=== PATIENT | female | born 1935 | race Caucasian/White ===

== ENCOUNTER 2024-08-31 00:54 | Inpatient (IN) | payer MEDICARE, OTHER, SELFPAY ==
[2024-08-30 19:52] VITALS: BP 125/72
--- NOTE | 2024-08-30 19:54 | ED.GENMED ---
History of Present Illness
General
Chief Complaint: Change in Mental Status
Source: patient and ambulance crew
Exam Limitations: none
Time Seen by Provider: 08/30/24 19:48
Nursing documentation reviewed up to this point in time: agreed with
History of Present Illness
History of Present Illness:
89-year-old female with apparent past medical history of atrial fibrillation (per EMS) presents to the ER for evaluation of lethargy, confusion. Patient is confused on arrival and limited as a historian. According to EMS report she has a history
of atrial fibrillation and presents from home where she lives with her son for increased lethargy and confusion today. When asked the patient how she is feeling she does not respond but she does answer yes or no questions. When asked if she has
pain in her chest she says no. When asked if she has abdominal pain she says no. When asked if she is short of breath she says no. She was covered in stool on arrival and had a high fever. According to EMS family is on the way to the hospital
unfortunately no contact information available at this time and so initial history is limited.
UPDATE
Upon arrival I was able to speak with patient's heel cutter who lives at home with her. He reports that normally she is awake and alert and coherent, plays the piano and can hold a normal conversation and perform ADLs. Apparently today became very
confused, had an episode of vomiting this morning. They noticed that she was lethargic and not speaking very much which is very unusual. Called EMS to bring her to the hospital. Her only medical history is hypothyroidism for which she takes
Synthroid and hyperlipidemia for which she takes a statin. No reported history of A-fib or any cardiac issues according to heel cutter.
Review of Systems
Review of Systems
Unable to obtain full review of systems at this time due to: other (Confused)
All Other Systems: Not applicable
Phy Exam
Physical Exam
Physical Exam:
General: Awake, alert, oriented to person but not place or time
Head: Normocephalic, atraumatic
Eyes: Conjunctiva normal, pupils equal round reactive to light bilaterally
Throat: Airway intact, somewhat dry mucous membranes
Neck: Trachea midline, supple without meningismus
Lungs: Diminished at the lung bases bilaterally; normal respiratory rate, normal pulse ox on room air
Heart: Tachycardia with regular rhythm, no murmurs, gallops, or rubs
Abd: Soft, non distended, no apparent tenderness
Neuro: No gross deficits but disoriented and inconsistent with command following or answering questions
Skin: no rash or wounds noted
Extremities: Trace edema in the legs, extremities are warm and well-perfused
Scores
Heart Failure Risk
Heart Failure Risk Score: Not Applicable
Heart Score for Chest Pain Patients
STEMI patient?: Not applicable
Withdrawal Assessment of Alcohol
Withdrawal Assessment Completed?: Not applicable
Course
Orders/Labs/Results
Orders:
Orders
08/30/24 19:45
Electrocardiogram (*1) Urgent
Reason for Study: Fatigue / Weakness
08/30/24 19:46
EKG- Treatment ONCE
08/30/24 19:49
CR Chest Portable - 1 View Urgent
Comment:
Reason For Exam: fever
Reason Study Needs to be Portable: Unable to Transport
08/30/24 19:50
Complete Blood Count/With Diff Urgent
Comprehensive Metabolic Panel Urgent
TSH Reflex To Free T4 Urgent
Comment: ADDON
Urinalysis Reflex To Culture Urgent
Date Specimen was Collected: 08/30/24
Time Specimen was Collected: 19:46
Urine Microscopic Reflex Cult Urgent
Urine Culture Urgent
NIKKI Source: U
Specimen Description:
Date Specimen was Collected: 08/30/24
Time Specimen was Collected: 19:46
Acetaminophen [Tylenol/Feverall] 650 mg RECTAL NOW STA
08/30/24 19:51
Lactate Level [Lactic Acid] Urgent
Blood Culture Q30M
NIKKI Source: Blood/Venous
Specimen Description:
Blood Culture Q30M
NIKKI Source: Blood/Venous
Specimen Description:
Influenza A+B Rapid Molecular Urgent
NIKKI Source: Nasal Swab
Specimen Description:
0.9% Sodium Chloride 1000 ml [Nss] 1,000 ml IV BOLUS
08/30/24 20:06
CT Head W/o Iv Contrast Urgent
Comment:
Reason For Exam: confused, speech issues
08/30/24 20:19
Acetaminophen [Tylenol] 1,000 mg PO NOW STA
08/30/24 20:20
Acetaminophen [Tylenol] 650 mg .ROUTE .STK-MED ONE
08/30/24 20:21
Acetaminophen [Tylenol] 650 mg PO NOW STA
08/30/24 20:39
COVID-19 Antigen Urgent
Source: Nasal Swab
08/30/24 20:40
CT Abd/pel Without Iv Or Oral Urgent
Comment:
Reason For Exam: sepsis, UTI--eval for stone/nidus
08/30/24 20:41
CefTRIAXone [Rocephin] 1,000 mg IV NOW STA
08/30/24 22:58
Norovirus by PCR Urgent
NIKKI Source: Feces/Stool
Specimen Description:
Date Specimen was Collected: 08/30/24
Time Specimen was Collected: 22:58
08/30/24 23:32
0.9% Sodium Chloride 1000 ml [Nss] 1,000 ml IV BOLUS
08/30/24 23:33
Apixaban [Eliquis] 5 mg PO ONCE ONE
08/31/24 00:36
Admit/Transfer Patient As Directed
Co-Sign Provider:
Level of Care: Inpatient admission
Assign to:: Telemetry
Physician / Group: Adebamiro/Hospitalist Service
Diagnosis: Acute UTI, Atrial fibrillation with RVR
Reason for Telemetry: Arrhythmia
Date to Stop Telemetry: 09/03/24
Time to Stop Telemetry: 11:00
Reason for Hospitalization: antibiotics IV, IV Cardizem infusion, IVF
Expected length of stay greater than two midnights?: Yes
ELOS- Estimated Length of Stay in days: 3
I certify the patient meets the requirements for IP care: Yes
PRN Pain Medication Management As Directed
May give lesser potent ordered pain med per pt: Yes
preference::
Protocol:: Medication orders for pain may be administered in a
manner that supports deferring to patient preference
when the pt is:
- Requesting an ordered lesser potent pain medication.
Least to most potent pain medications are defined
as: acetaminophen < NSAID < tramadol < opioids
(morphine, oxycodone, hydromorphone).
- Requesting a lesser dose of the same medication IF
ORDERED.
- Requesting a less intrusive route of administration
if both routes are prescribed by the provider (PO <
IV).
08/31/24 00:38
Code Status As Directed
Resuscitation Status: Full Code
08/31/24 00:51
CARDIOLOGY CONSULT Routine
Consulting Provider: Felix Reid
Was physician already notified: No
Reason for consult: new atrial fibrillation
08/31/24 00:52
Consult Notification Routine
Specialty to Notify: Cardiology
08/31/24 01:48
0.9% Sodium Chloride 1000 ml [Nss] 1,000 ml IV 60 mls/hr
Acetaminophen [Tylenol] 650 mg PO Q4HPRN PRN
Bisacodyl [Dulcolax] 10 mg RECTAL [id number] PRN
Diltiazem 125 mg/125 ml Nss [Cardizem] 125 mg in 125 ml IV PER PROTOCOL
Continuous dose without titration in mg/hr:: 2.5
Additional Titration Instructions:: Do not titrate. Rate change by provider order only.
Docusate W/Senna [Senokot-S] 1 tablet PO BIDPRN PRN
Polyethylene Glycol Powder [Miralax] 17 grams PO DAILYPRN PRN
08/31/24 01:48
Activity As Directed
Activity Level: Out of Bed-Early Mobility
Intake/ Output As Directed
Frequency: Per unit guidelines
Pneumatic Compression Sleeves As Directed
Type: Knee high
Vital Signs As Directed
Frequency: Per unit guidelines
Weight As Directed
Frequency: Daily
Pulse Ox/spot Check [RESP] Routine
Quantity: 1
DX Deep Vein Thrombosis Video Routine
08/31/24 06:00
Echo 2D MMode Color/Doppler IN AM
Reason for Study: atrial fibrillation
Cholesterol Lowering
Cholesterol Lowering: Sodium, 2 Gram
Basic Metabolic Panel IN AM
Complete Blood Count/No Diff IN AM
Lipid Profile [Cardiovascular Evaluation] IN AM
Magnesium IN AM
TSH IN AM
Levothyroxine [Synthroid] 100 mcg PO DAILY @ 0600
08/31/24 22:00
CefTRIAXone [Rocephin] 1,000 mg IV Q24H
Rosuvastatin Calcium [Crestor] 10 mg PO HS
09/03/24 11:00
DC Protocol for Telemetry ONCE
Abnormal Lab Results
08/30/24
19:50
Absolute Neuts (auto) 7.7 H 10^3/uL
(1.4-6.5)
Absolute Lymphs (auto) 0.3 L 10^3/uL
(1.2-3.4)
Neutrophils % 91.1 H %
(42.2-75.2)
Lymphocytes % 3.3 L %
(20.5-51.1)
Sodium 134 L mmol/L
(135-145)
Carbon Dioxide 18 L mmol/L
(22-30)
Glucose 161 H mg/dl
(70-99)
Urine Ketones 3+ A
(Negative)
Ur Occult Blood Reflex 4+ A
(Negative)
Urine Nitrite (Reflex) Positive A
(Negative)
Leukocyte Esterase Rfl 1+ A
(Negative)
Urine WBC (Reflex) 11-15 A /HPF
(0-5)
Urine Bacteria (Reflex) Many A
(Negative)
08/30/24 19:50
08/30/24 19:50
Vital Signs
Initial and Last Documented VS:
Initial Vital Signs
Temp
38.7 C H
08/30/24 19:42
Last Documented Vital Signs
Temp Pulse Resp BP Pulse Ox
36.6 C 110 20 114/68 90
08/30/24 23:00 08/31/24 00:00 08/31/24 00:00 08/31/24 00:00 08/30/24 23:15
MDM/Problems Addressed
Differential Diagnosis Includes:
Confusion and fever: Differential diagnosis would include UTI, pneumonia, viral syndrome, other intra-abdominal infection somewhat less likely without tenderness
MDM/Problems Addressed:
89-year-old female presents for evaluation of lethargy and confusion, found to have fever on arrival. She was tachycardic, febrile but normotensive, normal respiratory rate, normal pulse ox. Will place an IV send labs including a CBC and a CMP,
lactate, blood cultures. Check urinalysis. Check chest x-ray. Swab for COVID and flu. Will provide antipyretic, fluids. Monitor closely reassess after the above. Family en route, obtain further history when able.
After obtaining further history from heel cutter will add on thyroid studies and also obtain a CT head with speech issues today and new onset A-fib with RVR although cognitive changes and speech difficulties I suspect are more likely related to
febrile illness.
Labs reviewed: CBC unremarkable, CMP no clinically significant abnormalities. Lactate less than 2. Urinalysis positive for infection with blood, nitrites, bacteria and pyuria; chest x-ray reviewed by me shows no acute disease. Will add CT abdomen
pelvis to evaluate for kidney stone/nidus given sepsis and UTI. Cover with antibiotics. Plan for admission.
CT head negative for any acute pathology. CT abdomen pelvis shows constipation, no kidney stone. Question stercoral colitis. Cover with antibiotics already for UTI. Regarding her new onset A-fib�heart rate has improved with fluids. Will start
on Eliquis for anticoagulation. Will admit for continued treatment. Case discussed with hospitalist.
Acute Exacerbation and/or Progression of Chronic Illness:
Acute atrial fibrillation with rapid ventricular response�heart rate improved with fluid resuscitation, also treated with Eliquis for anticoagulant
*Radiology
Radiology exam reviewed: preliminary read by ED provider and radiology read reviewed
*Pulse Oximetry
Patient hypoxic: no
*EKG
Interpreted by ED Provider?: Yes
Heart Rate: 140
Rate: tachycardiac
Rhythm: a-fib
[place]: normal axis
Interval: normal interval
QRS Pattern: normal QRS
Ischemia: non-specific ST changes
*Critical Care Note
Total Time (30-74mins, 75-104mins- exclusive of procedures): 33
comment:
Critical care statement: A total of 33 minutes of critical care time was provided for this patient. This includes management of unstable vital signs, evaluation of the patient at bedside, frequent reassessment, discussion with
consultants/hospitalist, and review of pertinent medical records. This time was separate from time utilized to perform any aforementioned documented procedures
Data Reviewed
Review of Other/Old Records Reveals: Labs
Source: patient, family and ambulance crew
Patient Management
Discussion with other providers: Hospitalist (Discussed with hospitalist)
Escalation/DeEscalation of care consider admission/obs:
Admission indicated
ED Attending Note
-
Portions of this chart may have been created with voice recognition software.� Occasional wrong word or��sound alike� substitutions may have occurred due to the inherent limitations of voice recognition software.
Discharge Plan
Departure
Patient Disposition: Admit
Date of Disposition: 08/30/24
Time of Disposition: 23:34
Admit to doctor: Stephon
Presentation/result/management discussed w/ accepting MD/DO: Hospitalist
Discharge Problem:
Encephalopathy, Acute UTI, Sepsis, Atrial fibrillation with RVR
Interventions
Interventions:
*Risk Screen - Suicide Last Done: 08/30/24 20:50
*General Assessment Last Done: 08/30/24 20:50
*Neglect/Abuse Screening Last Done: 08/30/24 20:50
*ED COVID-19 Vaccine History Last Done: 08/30/24 20:50
ED- Neurological Assessment Last Done: 08/30/24 20:49
ED Swallowing Screen Last Done: 08/30/24 20:15
[2024-08-30 20:00] VITALS: BP 118/64
[2024-08-30 20:08] LABS: Urine Albumin Trace (Neg - Trace); Urine Bilirubin Negative (Negative); Urine Character Clear (Clear); Urine Color Yellow; Urine Glucose Negative (Negative); Urine Ketone 3+ (Negative); Urine Leukocyte 1+ (Negative); Urine Nitrite Positive (Negative); Urine Occult Blood 4+ (Negative); Urine Specific Gravity 1.025 (<1.030); Urine Urobilinogen 1+ (Neg - 1+)
[2024-08-30] MEDS: TYLENOL 650 MG PO (20:21)
[2024-08-30 20:24] LABS: % Basophils 0.4 % (0-2); % Immature Granulocytes 0.5 % (0-0.5); % Lymphocytes 3.3 % (20.5-51.1); % Monocytes 4.7 % (1.7-9.3); % Neutrophils 91.1 % (42.2-75.2); Absolute Lymphocytes 0.3 10^3/uL (1.2-3.4); Absolute Monocytes 0.4 10^3/uL (0.1-0.6); Absolute Neutrophils 7.7 10^3/uL (1.4-6.5); Hematocrit 40.5 % (37.0-47.0); Hemoglobin 13.5 g/dL (12.0-16.0); Mean Corp Hgb Conc. 33.3 g/dL (33.0-37.0); Mean Corpuscular Hgb 30.3 pg (27.0-31.0); Mean Platelet Volume 9.8 fL (7.4-10.4); Nucleated Red Blood Cells % 0 %; Platelet Count 174 10^3/uL (130-400); Red Blood Cell Count 4.45 10^6/uL (4.20-5.40); Red Cell Dist. Width 13.2 % (11.5-14.5); White Blood Cell Count 8.5 10^3/uL (4.8-10.8)
[2024-08-30] MEDS: NSS 1000 IV (20:25)
[2024-08-30 20:29] LABS: Urine Mucus Few; Urine Squamous Cell 0-2 /LPF (Few)
[2024-08-30 20:30] LABS: Urine Bacteria Many (Negative); Urine Red Blood Cell 0-2 /HPF (0-2)
[2024-08-30 20:36] LABS: Lactic Acid 1.7 mmol/L (0.7-2.0)
[2024-08-30 20:40] LABS: ALT (SGPT) 21 U/L (0-35); AST (SGOT) 27 U/L (14-36); Albumin 4.2 g/dl (3.5-5.0); Alkaline Phosphatase 76 U/L (38-126); Blood Urea Nitrogen 17 mg/dl (7-17); Calcium 9.1 mg/dl (8.4-10.2); Carbon Dioxide 18 mmol/L (22-30); Chloride 104 mmol/L (98-107); Glucose 161 mg/dl (70-99); Potassium 4.5 mmol/L (3.5-5.1); Sodium 134 mmol/L (135-145); Total Bilirubin 1.2 mg/dl (0.2-1.3); Total Protein 7.3 g/dl (6.3-8.2); eGFR > 60.00
[2024-08-30 21:00] VITALS: BP 104/66
[2024-08-30 21:03] LABS: COVID-19 Antigen Negative (Negative)
[2024-08-30] MEDS: ROCEPHIN 1000 MG IV (21:32)
[2024-08-30 21:38] LABS: TSH Reflex To Free T4 1.07 uIU/ml (0.47-4.68)
[2024-08-30 22:00] VITALS: BP 111/57
[2024-08-30 23:00] VITALS: BP 108/63
[2024-08-31] VITALS (9 sets, daily range): BP systolic 114–162; BP diastolic 64–98; BMI 28.1
[2024-08-31] MEDS: NSS 1000 IV ×2 (00:02→03:24)
--- NOTE | 2024-08-31 00:43 | HPS.HSE ---
Family Physician
-
Family Physician: Anirudh Altamirano
Chief Complaint
-
Change in mental status
History of Present Illness
This is a 89-year-old female with past medical history of hypothyroid on Synthroid and hyperlipidemia who presents to the emergency department for evaluation of lethargy and confusion.
Unable to obtain history from patient. According to patient's actuarial technician will lives with her, she is usually alert awake and coherent and placed a panel. Today she became confused early in the am with 1 episode of vomiting. She was weak and not
speaking as usual. No recent changes in medications. She is only on Synthroid and rosuvastatin. When asked the patient she did answer that she was not feeling well today so that is why they brought her to the hospital. She could not specify why
she was not feeling well. She endorsed feeling weak and lethargic. She denied any other symptoms including fever (although she says she never checked her temperature), diarrhea, melena or hematochezia. She denies any cough. She denies feeling
short of breath. She denies feeling dizzy or lightheaded.
On arrival in the emergency department she was covered in stool and was found to be febrile to 101. Blood pressure was stable at around 114/60 and she was tachycardic to the 120s. ECG shows atrial fibrillation at a rate of 140. CT of the head was
unremarkable. CT abdomen and pelvis showed large stool burden, possible stercoral colitis and cholelithiasis without acute cholecystitis. CBC was unremarkable. Electrolytes BUN/creatinine were also within normal limits with normal LFTs. COVID
test was negative. Influenza negative. Urinalysis was markedly positive. After getting Tylenol and 1 L of normal saline her urethra reduced to the low 100s.
Medical History
Past Medical History
Past Medical History: Reports Hypercholesterolemia and Hypothyroidism
Past Surgical History: Reports None
Social History
Alcohol: None
Personal: Single
Living: With Family
Employment: Retired
Family History
Family History: Not pertinent
Allergies / Home Medications
Allergies reflects when Allergies were last updated in [facility].
Home Medications with original date entered in [facility]
Allergy/Medication List:
Allergies
Allergy/AdvReac Type Severity Reaction Status Date / Time
No Known Allergies Allergy Verified 08/30/24 21:05
Home Medications
levothyroxine 100 mcg tablet (Synthroid) 100 mcg PO DAILY 08/30/24
rosuvastatin 10 mg tablet 10 mg PO DAILY 08/30/24
Review of Systems
-
Unable to obtain full review of systems at this time due to: Acuity
Physical Exam
Vital Signs
Vital Signs
Temp Pulse Resp BP Pulse Ox
97.9 F 110 20 114/68 90
08/30/24 23:00 08/31/24 00:00 08/31/24 00:00 08/31/24 00:00 08/30/24 23:15
Physical Exam
General: Well Developed, Well Nourished and No Apparent Distress
HEENT: NormoCephalic, Anicteric, Moist mucous membranes and Atraumatic
Respiratory: Clear
Cardiac: S1/S2, Irregular Rhythm and Tachycardia
Breast: Deferred by me
GI: Soft, Non Tender, Non Distended and Normal Bowel Sounds
Rectal: Deferred by Provider
Musculoskeletal: No Clubbing, No Cyanosis and No Edema
Skin: Warm
Neuro: Awake, Alert, Oriented (oriented to person and place) and Nonfocal/grossly intact
Hematologic/Lymphatic: No Lymphadenopathy
Psych: Calm
Laboratory Results
-
08/30/24 19:50
08/30/24 19:50
Laboratory Results
Lactic Acid 1.7 mmol/L (0.7-2.0) 08/30/24 19:51
Total Bilirubin 1.2 mg/dl (0.2-1.3) 08/30/24 19:50
AST 27 U/L (14-36) 08/30/24 19:50
ALT 21 U/L (0-35) 08/30/24 19:50
Alkaline Phosphatase 76 U/L (38-126) 08/30/24 19:50
Data Reviewed
-
Diagnostic Radiology: Image Personally Visualized and interpreted
CT Scan: Report Reviewed by me
Medical Tests (Nuc Med, Echo, EKG etc): Image Personally Visualized and interpreted
Lab Data: Labs Reviewed by me
Impression/Plan
-
IMPRESSION:
Patient with fairly benign past medical history of hypothyroid on Synthroid and hyperlipidemia who presents to the emergency department with episode of altered mental status which is unusual for her and found to be in A-fib RVR and has a positive
UA. She was febrile on arrival. Picture c/w sepsis from UTI and afib RVR.
PLAN:
1. AFIB RVR - Rate in the 120s, hemodynamically stable.
- admit to telemetry
- start diltiazem gtt at 2.5 and monitor
- CHADS2 is 3, meets criteria for AC and eliquis started at 5 bid, cr 0.8
- obtain echo in am
- normal tsh, repeat as outpatient as could be altered by acute illness.
- consider cardiology consult
2. Sepsis - Cystitis with fever. No obstruction. No acute intraabdominal process
- urine cultures
- blood cultures
- IV ceftriaxone for now
- s/p NS in ED, monitor
3. Hypothyroid
- continue levothyroxine for now
DVT PPX - on eliquis for now
Code status - Full Code
[2024-08-31] MEDS: ELIQUIS 5 MG PO (02:18)
[2024-08-31] MEDS: CARDIZEM 125 IV (04:33)
[2024-08-31] MEDS: SYNTHROID 100 MCG PO (05:45)
[2024-08-31 07:36] LABS: Hematocrit 37.6 % (37.0-47.0); Hemoglobin 12.6 g/dL (12.0-16.0); Mean Corp Hgb Conc. 33.5 g/dL (33.0-37.0); Mean Corpuscular Volume 92.6 fL (81.0-99.0); Mean Platelet Volume 9.7 fL (7.4-10.4); Platelet Count 150 10^3/uL (130-400); Red Blood Cell Count 4.06 10^6/uL (4.20-5.40); Red Cell Dist. Width 13.3 % (11.5-14.5); White Blood Cell Count 6.1 10^3/uL (4.8-10.8)
[2024-08-31 08:04] LABS: Blood Urea Nitrogen 14 mg/dl (7-17); Calcium 8.6 mg/dl (8.4-10.2); Carbon Dioxide 22 mmol/L (22-30); Chloride 108 mmol/L (98-107); Estimated Creatinine Clearance 61 ml/min; Glucose 109 mg/dl (70-99); HDL Cholesterol 71 mg/dl; LDL Cholesterol, Calculated 70 mg/dl; Potassium 4.1 mmol/L (3.5-5.1); Sodium 139 mmol/L (135-145); Total Cholesterol 153 mg/dl (50-199); Triglyceride 61 mg/dl (10-149); Very Low Density Lipoprotein 12 mg/dl (0-30); eGFR > 60.00
[2024-08-31 08:28] LABS: TSH 0.66 uIU/ml (0.47-4.68)
--- NOTE | 2024-08-31 10:30 | W.PN.HOSP.TC ---
Today's Communication/Plan
-
see PN
Assessment / Plan
Assessment / Plan
89yo F with PMHx of hypothyroidism and HLD came with acute onset confusion and episode of vomiting. On admission concered for UTI, however CT abd showed sercoral colitis with significant constipation too. Afib with RVR on admission.
A/P:
#Sepsis (Febrile, AMS) 2/2 UTI vs most likely stercoral colitis
#Constipation with stool impaction
Rectal dilation to 9cm - colorectal Sx eval
Zosyn
NPO with meds
IVF
Ucx pending
#Afib with RVR
improved with cardizem
Cardiology to follow
#Mild pulmonary congestion on XR
watch for overhydration
check ProBNP
Check Echo
#Hypothyroidism
#HLD
cont home meds
TSH WNL
DVT ppx on hep
DNR/DNI as discussed with daughter (POA)
I have spent at least 59min reviewing chart, test results, communication with consultants and direct patient care
Anticipated Discharge: > 48 hours
Subjective/Interval History
-
Date of Service: August 31, 2024
Objective Data
-
Labs:
Laboratory Results
08/31/24
07:07
WBC 6.1
Hgb 12.6
Hct 37.6
Plt Count 150
Sodium 139
Potassium 4.1
Chloride 108 H
Carbon Dioxide 22
BUN 14
Creatinine 0.7
Glucose 109 H
Calcium 8.6
Vital Signs:
Vital Signs
Temp Pulse Resp BP Pulse Ox
100.5 F H 107 19 160/98 96
08/31/24 07:29 08/31/24 07:29 08/31/24 07:29 08/31/24 07:29 08/31/24 07:29
I&O
08/30/24 08/31/24 09/01/24
06:59 06:59 06:59
Intake Total 120 / 120
Output Total 300 / 300
Balance -180 / -180
Review of Systems
-
Unable to obtain full review of systems at this time due to: Acuity
Physical Exam
-
General: No Apparent Distress
HEENT: Normocephalic
Respiratory: Clear to Auscultation
Cardiac: Regular Rhythm
GI: Soft, Nontender and Nondistended
Skin: Warm
Neuro: Awake and Alert; Negative AO x 3
Psych: Confused and Apparent Dementia
[2024-08-31] MEDS: ZOSYN 50 IV ×3 (11:13→21:30)
[2024-08-31] MEDS: TOPROL XL 25 MG PO ×2 (11:51→20:07)
[2024-08-31] MEDS: FLEET MINERAL OIL ENEMA 133 ML RECTAL (11:51)
[2024-08-31 11:58] LABS: NT-proBNP 2590 pg/ml
--- NOTE | 2024-08-31 13:36 | CON.CRS ---
Addendum entered and electronically signed by Clarence Grey MD 08/31/24 17:20:
Abdominal x-ray reviewed, still stool within the rectal vault, but significantly decreased from CT scan; patient refused rectal for disimpaction but is responding to enemas; would continue daily enemas for 2 to 3 days and then maintain on a daily
bowel regimen, such as Colace 2 to 3 pills daily +/- MiraLAX once or twice daily; no surgery currently indicated; discussed with primary, colorectal will sign off
Original Note:
Consultation
-
Performing Provider: Clarence Grey MD
Reason for Consultation: stercoral colitis
Medical History
-
History of Present Illness:
89-year-old female with PMH of hypothyroid, HLD, who presents with AMS, weakness, vomiting x 1. In the ED, she was found to be in A-fib with RVR. Her WBC was 8.5, creatinine 0.7, lactate 1.[address] AP was done which showed
significant stool within the rectum associated with stercoral colitis as well as mild ileus. Patient denies any current nausea or abdominal pain. However, patient was resistant to interaction.
Past Medical History
Past Medical History: Other (As above)
Past Surgical History: None
Allergies / Home Medications
Allergy/AdvReac Type Severity Reaction Status Date / Time
No Known Allergies Allergy Verified 08/30/24 21:05
�Medication �Instructions �Recorded �Confirmed �Type
levothyroxine 100 mcg tablet 100 mcg PO DAILY 08/30/24 08/30/24 History
(Synthroid)
rosuvastatin 10 mg tablet 10 mg PO DAILY 08/30/24 08/30/24 History
Review of Systems
-
A 10 point review of systems was completed, and was negative except as per HPI.
Physical Exam
Vital Signs
Temp 98.7 F 08/31/24 11:16
Pulse 95 08/31/24 11:16
Resp Rate 20 08/31/24 11:16
Blood pressure 129/64 08/31/24 11:51
SaO2 97 08/31/24 11:16
08/30/24 08/31/24 09/01/24
06:59 06:59 06:59
Actual Weight 81.4 kg
Body Mass Index (BMI) 28.1
Lab Results / Allergies
08/31/24 07:07
08/31/24 07:07
WBC 6.1 10^3/uL (4.8-10.8) 08/31/24 07:07
Hgb 12.6 g/dL (12.0-16.0) 08/31/24 07:07
Hct 37.6 % (37.0-47.0) 08/31/24 07:07
Plt Count 150 10^3/uL (130-400) 08/31/24 07:07
Abs Immat Gran (auto) 0.0 10^3/uL (0-0.05) 08/30/24 19:50
Neutrophils % 91.1 % (42.2-75.2) H 08/30/24 19:50
Allergy/AdvReac Type Severity Reaction Status Date / Time
No Known Allergies Allergy Verified 08/30/24 21:05
Physical Exam
General: Well Developed, Well Nourished and No Apparent Distress
HEENT: Normocephalic and Atraumatic
Respiratory: Non Labored Respirations
GI: Soft, Non Tender (No rebound or guarding) and Non Distended
Rectal: Other (Patient refusing)
Skin: Warm and Dry
Neuro: Awake, Alert and Oriented (Oriented to name, did not want to answer any other questions)
Data Reviewed
-
CT Scan: Image Personally Visualized and interpreted
Assessment / Plan
-
89-year-old female with PMH of hypothyroid, HLD, who presents with AMS, weakness, vomiting x 1. In the ED, she was found to be in A-fib with RVR. Her WBC was 8.5, creatinine 0.7, lactate 1.7 [address]. A [address] AP was done which showed
significant stool within the rectum associated with stercoral colitis as well as mild ileus. History primarily taken from chart because patient did not want to answer my questions. She states that she understood [place] and understands my
questions, but prefers not to answer.
Tmax 101.7, HR 90s to 110s, normotensive
WBC 6.1 (but increased neutrophil percentage), hemoglobin stable
�Stercoral colitis; per nurse, patient received enema and had 'very large' amount of stool release
�I recommended a rectal exam, but patient refused; she seemed alert and oriented, but could not be confirmed as she did not want to interact; nurse states that she was compliant and answering his questions minutes previously; I explained that it
was important to rule out any source of obstruction; patient said that she understood and that she did not want a rectal exam
�Continue stool softener, like Colace, plus/minus MiraLAX 1-2 times per day
�Continue fleets enema as needed
�Will obtain AXR to ensure no further impacted stool
�Fever and AMS most likely related to UTI; stercoral colitis appears mild and should resolve as she has started moving her bowels
� Care per primary; if patient continues having BMs, colorectal will sign off
[2024-08-31] MEDS: LASIX 40 MG IV (14:11)
--- NOTE | 2024-08-31 15:56 | CON.CAR ---
Addendum entered and electronically signed by Rick Lazo MD 08/31/24 16:35:
I saw and examined the patient.
The RUCHING MACHINE OPERATOR or PA's note was reviewed and I agree with the note.
Comment: General: Well developed, well nourished in NAD.
Neck: Supple, no JVD, HJR, carotids +2 B/L, no bruits bilaterally.
Heart: Non displaced PMI, Irreg, no murmurs, No S3, S4, no rubs.
Lungs: scattered rhonchi throughout.
Extremities: No clubbing, cyanosis or edema bilaterally.
Neuro: Grossly nonfocal, awake, alert and oriented x3.
Radha has history of hypothyroidism and hyperlipidemia. She presented with change in mental status as well as vomiting with stercoral colitis. Cardiology was consulted for atrial fibrillation. She was also felt to be septic with temperature of
101 and was tachycardic with rapid A-fib.
Discussed with patient family and patient not to be a fall risk. Will start Eliquis. Will increase Toprol for heart rate control. Will also give a dose of IV Lasix with elevated proBNP
Original Note:
Consultation
Consultation Request
Date/Time Consultation Requested: 08/31/24
Date/Time Consultation Performed: 08/31/24
Requesting Provider: Dr. Carey
Performing Provider: Dr. Lazo
Reason for Consultation: Possible new Afib vs chronic
Medical History
-
History of Present Illness:
Patient came to ER last evening with change in mental status of vomiting and is now elevated with stercoral colitis and cardiology has been consulted for evidence of A-fib on telemetry. Patient is originally from the [facility] and came to the [place]
when she was 13 years old, she speaks Croatian as well. Patient was not able to participate in our conversation and was noted to be confused by her friend/POA, Susannah, whom she lives with. Patient has no family locally, it is just Susannah. Patient is
normally conversant and able to walk around the home, she can even play pieces on the piano, but they noticed yesterday that she had an episode of vomiting, appeared weak and was not carrying a conversation like she normally would. In [facility] there
was concern for sepsis and temperature was 101 �F and she was tachycardic. ECG showed A-fib with RVR. I called and talked to Susannah and she says there is no history of A-fib and the patient has not seen a it communications manager in the past. Patient was not
complaining of any palpitations or chest pain. CT scan of the abdomen and pelvis showed a large stool burden with possible stercoral colitis. In the interim surgery has seen the patient and recommended a bowel regimen. On telemetry patient has
remained in A-fib throughout admission. Prior to admission patient was taking Synthroid and Crestor. Following admission she was started on Toprol-XL 25 mg daily and heart rates are somewhat improved.
PMH:
Hypothyroidism
Hyperlipidemia
Past Medical History
Past Medical History: Other
Past Surgical History: None
Social History
Tobacco: Non-Smoker
Alcohol: None
Drug: None
Personal: Single
Living: With Family (lives with her friend and Susannah VIEYRA)
Family History
Family History: Reviewed & Not Pertinent (not much is known about her family's PMH, she came to [place] from [facility] at age 13)
Allergies / Home Medications
Allergy/AdvReac Type Severity Reaction Status Date / Time
No Known Allergies Allergy Verified 08/30/24 21:05
�Medication �Instructions �Recorded �Confirmed �Type
levothyroxine 100 mcg tablet 100 mcg PO DAILY 08/30/24 08/30/24 History
(Synthroid)
rosuvastatin 10 mg tablet 10 mg PO DAILY 08/30/24 08/30/24 History
Review of Systems
-
History Source: Patient and Family (her EDOUARDSusannah Gongora, by phone)
All other systems: Negative unless noted
Physical Exam
Vital Signs
Temp Pulse Resp BP Pulse Ox
99.4 F 109 18 127/78 94
08/31/24 15:13 08/31/24 15:13 08/31/24 15:13 08/31/24 15:13 08/31/24 15:13
GEN: Awake and alert. NAD
HEENT: EOMI, MMM
LUNGS: CTA B/L, no wheezes
CV: Afib on tele. Irreg irreg, S1/S2, 09/27 syst LSB
ABD: soft, BS+, NT, ND
EXT: No clubbing, cyanosis, lesions or edema B/L
NEURO: Gross non-focal
SKIN: Warm, dry and pink. No rash
Lab Results
08/31/24 07:07
08/31/24 07:07
Emc-W-Nighnvpfzbs Pept 2590 pg/ml 08/31/24 07:07
Impression / Plan
-
PCP: Dr. Anirudh Altamirano
Cardiology: None
Impression:
Admitted with confusion and vomiting 08/30/2024
Stercoral colitis
Sepsis
Newly diagnosed A-fib with RVR of unknown chronicity
Possible acute HFpEF
Hypothyroidism
Hyperlipidemia
Echo 08/31/2024: EF 60%, no WMA, mild to moderate MR, mild to moderate aortic regurgitation, no , moderate to severe TR with PAP 37 mmHg
Plan:
-Patient came to ER last evening with change in mental status of vomiting and is now elevated with stercoral colitis and cardiology has been consulted for evidence of A-fib on telemetry. Patient is originally from the [facility] and came to the [place]
when she was 13 years old, she speaks Croatian as well. Patient was not able to participate in our conversation and was noted to be confused by her friend/POA, Susannah, whom she lives with. Patient has no family locally, it is just Susannah. Patient is
normally conversant and able to walk around the home, she can even play pieces on the piano, but they noticed yesterday that she had an episode of vomiting, appeared weak and was not carrying a conversation like she normally would. In ER there
was concern for sepsis and temperature was 101 �F and she was tachycardic. ECG showed A-fib with RVR. I called and talked to Susannah and she says there is no history of A-fib and the patient has not seen a it communications manager in the past. Patient was not
complaining of any palpitations or chest pain. CT scan of the abdomen and pelvis showed a large stool burden with possible stercoral colitis. In the interim surgery has seen the patient and recommended a bowel regimen. On telemetry patient has
remained in A-fib throughout admission. Prior to admission patient was taking Synthroid and Crestor. Following admission she was started on Toprol-XL 25 mg daily and heart rates are somewhat improved.
-ECG reviewed by me shows evidence of AF with RVR and nonspecific inferior and anterolateral ST changes.
-Recheck ECG to see if ST changes have improved with rate control.
-No complaints of chest pain. There are coronary calcifications on CT chest.
-Called and talked with the patient's POA/friend that she lives with named Susannah. Susannah says patient has never seen a it communications manager in A-fib is a new diagnosis. We talked about A-fib and concern for stroke risk. Susannah feels that the patient has had
some unsteadiness on her feet, but that she is largely in a controlled environment and someone was with her at all times. We talked about the possible devastating effects of CVA. Made a plan to add Eliquis 5 mg BID (age 89, Cre 0.7 wt 81.4 kg). It
looks as though stercoral colitis is already resolving. If patient develops bleeding problems or has falls then will consider stopping.
-Will ask CM for help on checking cost.
-Will increase Toprol XL to 25 mg BID starting tonight.
-TSH normal
-Mild to mod MR and AR on echo.
-pro-BNP 2590 and evidence of mild acute HF on CXR. Will try a dose of Lasix 40 mg IV x1. Patient was not taking a diuretic prior to admission. ---Lasix IV already ordered by Hospitalist attending, agree with this and will follow up to see if
additional doses needed tomorrow.
-Check daily weights
-Currently NPO
[2024-08-31] MEDS: MIRALAX 17 GRAMS PO ×2 (17:05→21:31)
[2024-08-31] MEDS: CRESTOR 10 MG PO (21:32)
[2024-09-01 03:05] VITALS: BP 145/80
[2024-09-01] MEDS: ZOSYN 50 IV ×4 (03:51→22:25)
[2024-09-01] MEDS: SYNTHROID PO (05:25)
[2024-09-01 06:00] VITALS: BMI 27.6
[2024-09-01] MEDS: TOPROL XL 25 MG PO ×2 (08:14→19:44)
[2024-09-01] MEDS: MIRALAX 17 GRAMS PO ×3 (08:14→22:25)
[2024-09-01] MEDS: ELIQUIS 5 MG PO ×2 (08:16→19:44)
[2024-09-01 08:58] LABS: % Basophils 0.5 % (0-2); % Immature Granulocytes 0.5 % (0-0.5); % Lymphocytes 17.3 % (20.5-51.1); % Monocytes 8.6 % (1.7-9.3); % Neutrophils 73.1 % (42.2-75.2); Absolute Lymphocytes 0.8 10^3/uL (1.2-3.4); Absolute Monocytes 0.4 10^3/uL (0.1-0.6); Absolute Neutrophils 3.2 10^3/uL (1.4-6.5); Hematocrit 35.5 % (37.0-47.0); Hemoglobin 11.6 g/dL (12.0-16.0); Mean Corp Hgb Conc. 32.7 g/dL (33.0-37.0); Mean Corpuscular Hgb 30.4 pg (27.0-31.0); Mean Corpuscular Volume 92.9 fL (81.0-99.0); Mean Platelet Volume 9.7 fL (7.4-10.4); Nucleated Red Blood Cells % 0 %; Platelet Count 147 10^3/uL (130-400); Red Blood Cell Count 3.82 10^6/uL (4.20-5.40); Red Cell Dist. Width 13.8 % (11.5-14.5); White Blood Cell Count 4.4 10^3/uL (4.8-10.8)
[2024-09-01 09:32] LABS: ALT (SGPT) 18 U/L (0-35); AST (SGOT) 24 U/L (14-36); Albumin 3.3 g/dl (3.5-5.0); Alkaline Phosphatase 61 U/L (38-126); Blood Urea Nitrogen 15 mg/dl (7-17); Calcium 8.3 mg/dl (8.4-10.2); Carbon Dioxide 20 mmol/L (22-30); Chloride 108 mmol/L (98-107); Estimated Creatinine Clearance 42 ml/min; Glucose 92 mg/dl (70-99); Potassium 3.6 mmol/L (3.5-5.1); Sodium 138 mmol/L (135-145); Total Bilirubin 0.9 mg/dl (0.2-1.3); Total Protein 6.2 g/dl (6.3-8.2); eGFR > 60.00
[2024-09-01 11:00] VITALS: BP 119/80
--- NOTE | 2024-09-01 11:45 | W.PN.CARDCBS ---
Addendum entered and electronically signed by Rick Lazo MD 09/01/24 12:09:
I saw and examined the patient.
The AIR BAG STRIPPER or PA's note was reviewed and I agree with the note.
Comment: General: Well developed, well nourished in NAD.
Neck: Supple, no JVD, HJR, carotids +2 B/L, no bruits bilaterally.
Heart: Non displaced PMI, irregular, no murmurs, No S3, S4, no rubs.
Lungs: Scattered rhonchi
Extremities: No clubbing, cyanosis or edema bilaterally.
Neuro: Grossly nonfocal, awake, alert and oriented x3.
Stable cardiology status off of diuretics. Remains in rate controlled A-fib. Will prescribe Eliquis. Will check on cost. recheck pro bnp
Original Note:
Today's Communication / Plan
-
Recheck pro-BNP in AM
Cont with rate control efforts for now
New to Eliquis and will e-scribe to pharmacy when pharmacy listed
Impression / Plan
-
PCP: Dr. Anirudh Altamirano
Cardiology: None
Impression:
Admitted with confusion and vomiting 08/30/2024
Stercoral colitis
Sepsis
Newly diagnosed A-fib with RVR of unknown chronicity
New start to chronic Eliquis OAC 09/01/24
Possible acute HFpEF
Hypothyroidism
Hyperlipidemia
Echo 08/31/2024: EF 60%, no WMA, mild to moderate MR, mild to moderate aortic regurgitation, no , moderate to severe TR with PAP 37 mmHg
Plan:
-Tele reviewed by me 09/01/24, remains in Afib with HRs in the 80-90s.
-New to Toprol XL 25 mg BID this admission, would continue
-Talked with patient's POA, Susannah, on 08/31/24 and reviewed risks vs benefits of OAC. Susannah feels that patient is in a monitored setting in her home and that a stroke would be a devastating change and so we added Eliquis 5 mg BID (age 89, Cre 0.7 wt
81.4 kg) starting 09/01/24 AM.
-Consult to CM to check on cost of Eliquis, was not able to e-scribe to her pharmacy due to not having a pharmacy listed in [facility], will follow up.
-For now will continue with a rate control strategy. Patient does not appear to be symptomatic with Afib.
-Patient with anterior T wave inversions while in rapid Afib and ECG repeated with improved rate control on 09/01/[address]-T wave changes. No WMA on echo. No complaints of chest pain.
-Mild to mod MR and AR on echo.
-Suspected mild acute HF on admission with CXR changes and pro-BNP 2590. Weight is down 4 lbs after Lasix 40 mg IV x1 on 08/31/24 PM. Patient was not taking a diuretic prior to admission. Recheck pro-BNP in AM. No additional Lasix for now.
HPI: Patient came to ER last evening with change in mental status of vomiting and is now elevated with stercoral colitis and cardiology has been consulted for evidence of A-fib on telemetry. Patient is originally from the [facility] and came [place] the
[place] when she was 13 years old, she speaks Swedish as well. Patient was not able to participate in our conversation and was noted to be confused by her friend/POA, Susannah, whom she lives with. Patient has no family locally, it is just Susannah. Patient
is normally conversant and able to walk around the home, she can even play pieces on the piano, but they noticed yesterday that she had an episode of vomiting, appeared weak and was not carrying a conversation like she normally would. In ER
there was concern for sepsis and temperature was 101 �F and she was tachycardic. ECG showed A-fib with RVR. I called and talked to Susannah and she says there is no history of A-fib and the patient has not seen a applications administrator in the past. Patient was
not complaining of any palpitations or chest pain. CT scan of the abdomen and pelvis showed a large stool burden with possible stercoral colitis. In the interim surgery has seen the patient and recommended a bowel regimen. On telemetry patient
has remained in A-fib throughout admission. Prior to admission patient was taking Synthroid and Crestor. Following admission she was started on Toprol-XL 25 mg daily and heart rates are somewhat improved.
Progress Note - Consumer Insights Intern
Subjective
Date of Service: September 01, 2024
Opens eyes, not answering questions
Objective
Labs:
09/01/24 07:58
09/01/24 07:58
Labs
Hgb 11.6 g/dL (12.0-16.0) L 09/01/24 07:58
Hct 35.5 % (37.0-47.0) L 09/01/24 07:58
Plt Count 147 10^3/uL (130-400) 09/01/24 07:58
Sodium 138 mmol/L (135-145) 09/01/24 07:58
Potassium 3.6 mmol/L (3.5-5.1) 09/01/24 07:58
BUN 15 mg/dl (7-17) 09/01/24 07:58
Creatinine 0.9 mg/dL (0.6-1.0) 09/01/24 07:58
Glucose 92 mg/dl (70-99) 09/01/24 07:58
Vital Signs and I&O:
Vital Signs
Temp Pulse Resp BP Pulse Ox
98.2 F 101 16 145/80 94
09/01/24 03:05 09/01/24 03:05 09/01/24 03:05 09/01/24 03:05 09/01/24 08:00
Vital Signs
Temp Pulse Resp BP Pulse Ox
98.2 F 101 16 145/80 94
09/01/24 03:05 09/01/24 03:05 09/01/24 03:05 09/01/24 03:05 09/01/24 08:00
Intake & Output
08/30/24 08/31/24 09/01/24 09/02/24
06:59 06:59 06:59 06:59
Intake Total 120 / 120 1370 / 1370
Output Total 300 / 300 350 / 350
Balance -180 / -180 1020 / 1020
Physical Exam
Physical Exam
GEN: Awake and alert. NAD
HEENT: EOMI, MMM
LUNGS: No wheeze
CV: Afib on tele.
ABD: ND
EXT: No edema B/L
NEURO: Gross non-focal
SKIN: No rash
--- NOTE | 2024-09-01 11:51 | W.PN.HOSP.TC ---
Today's Communication/Plan
-
cont Zosyn
Assessment / Plan
Assessment / Plan
89yo F with PMHx of hypothyroidism and HLD came with acute onset confusion and episode of vomiting. On admission concered for UTI, however CT abd showed sercoral colitis with significant constipation too. Afib with RVR on admission.
A/P:
#Sepsis (Febrile, AMS) 2/2 UTI vs most likely stercoral colitis
#Constipation with stool impaction - resolving
Rectal dilation to 9cm - colorectal Sx: enema
Zosyn
IVF
Ucx E.coli
Bcx - 1 set with coag.neg Staph - most likely contamination - repeated Bcx - neg to date
#Afib with RVR
#Mild pulmonary congestion on XR
improved with Cardizem
Cardiology to follow: Eliquis and Toprol
s/p Lasix
ProBNP elevated on admision
Echo EF 60%, moderate-severe TR, pulmonary HTN, mild-moderate MR
#Hypothyroidism
#HLD
cont home meds
TSH WNL
DVT ppx on hep
DNR/DNI as discussed with daughter (POA)
I have spent at least 39min reviewing chart, test results, communication with consultants and direct patient care
Anticipated Discharge: 24 - 48 hours
Subjective/Interval History
-
Date of Service: September 01, 2024
Objective Data
-
Labs:
Laboratory Results
09/01/24
07:58
WBC 4.4 L
Hgb 11.6 L
Hct 35.5 L
Plt Count 147
Sodium 138
Potassium 3.6
Chloride 108 H
Carbon Dioxide 20 L
BUN 15
Creatinine 0.9
Glucose 92
Calcium 8.3 L
Total Bilirubin 0.9
AST 24
ALT 18
Alkaline Phosphatase 61
Vital Signs:
Vital Signs
Temp Pulse Resp BP Pulse Ox
98.2 F 101 16 145/80 94
09/01/24 03:05 09/01/24 03:05 09/01/24 03:05 09/01/24 03:05 09/01/24 08:00
I&O
08/31/24 09/01/24 09/02/24
06:59 06:59 06:59
Intake Total 120 / 120 1370 / 1370
Output Total 300 / 300 350 / 350
Balance -180 / -180 1020 / 1020
Review of Systems
-
History Source: Patient
All other systems: Reviewed and negative
Physical Exam
-
General: No Apparent Distress
HEENT: Normocephalic
Respiratory: Clear to Auscultation
Cardiac: Regular Rhythm
GI: Soft, Nontender and Nondistended
[2024-09-01] MEDS: FLEET MINERAL OIL ENEMA 133 ML RECTAL (12:12)
[2024-09-01 13:10] VITALS: BP 128/69; PULSE 96; O2SAT 93
[2024-09-01 15:00] VITALS: BP 110/78
--- NOTE | 2024-09-01 15:00 | CM ---
Pt seen bedside. Pt was not responsive to CM when addressed.
Spoke w/ pt's friend/POA, Susannah. Initial assessment completed.
Pt lives w/ Susannah and Susannah's family in a 2 story townhouse- 2 steps to enter
Pt uses walker, has chair lift and shower bench in the home for additional support. Pt does not walk at baseline per chart
Prev was at SNF following hip surgery. Per Susannah, doesn't remember the name of rehab but it is located on [facility] in [facility].
No VN/PT hx
Address, point of contacts and insurances verified
PCP: Dr. Anirudh Altamirano
Pharmacy: [facility] ([facility] Per Susannah, planning to change pharmacies since recently moving to [place].
Per PT/OT, currently recommending SNF at this time. Discussed w/ Susannah rehab recommendation. Per Susannah, she does not want pt to go to rehab and her being home is probably best for her and is wiling to pay for care in the home. CM discussed that pt
needs assist of 2 people at this time, ensuring she is aware of pt's current presentation and level of functioning. Susannah cont to disagree w/ rehab and wants pt to d/c home w/ home PT and aides/caregivers. Susannah did not have a preference on HH agency
and agreeable to [facility] at d/c. CM to provide caregiver/PHYSICIST [employer] list closer to d/c.
Susannah states she is able to do laundry, go shopping and cook for pt, but is unable to bathe her.
CM verified pharmacy as one is not listed. CM inquired on prescription coverage, Susannah to locate insurance cards and call CM back to confirm prescription insurance.
CM attempted to complete [employer] cost check. Left message w/ pharmacy
Plan: Home w/ [facility] and additional support in the home
--- NOTE | 2024-09-01 15:45 | VNURNOTE ---
[facility] liaison called AZALIA Davalos to explain [facility] services. Susannah could only talk briefly as the high school teacher was in the room. She requested call back tomorrow. [facility] referral in [facility].
[2024-09-01 19:05] VITALS: BP 115/74
[2024-09-01] MEDS: CRESTOR 10 MG PO (22:25)
[2024-09-01 23:06] VITALS: BP 147/74
[2024-09-02] VITALS (8 sets, daily range): BP systolic 106–146; BP diastolic 70–95; PULSE 86–118; O2SAT 94; BMI 27.3
--- NOTE | 2024-09-02 03:29 | DOWNTIME ---
There was a [employer] Client Director Of Professional Services Downtime on 09/02/2024 from 0200 to 09/02/2024 at 0325 . Downtime documentation of patient's care, including medication administrations, has been reconciled in the electronic record per guidelines. Refer to the
patient's paper chart under the miscellaneous tab to see printed paper medication records and downtime forms.
[2024-09-02] MEDS: ZOSYN 50 IV ×2 (04:29→08:26)
[2024-09-02] MEDS: SYNTHROID 100 MCG PO (04:30)
[2024-09-02 07:58] LABS: % Basophils 0.5 % (0-2); % Eosinophils 0.5 % (0-6); % Immature Granulocytes 0.3 % (0-0.5); % Lymphocytes 27.6 % (20.5-51.1); % Monocytes 11.3 % (1.7-9.3); % Neutrophils 59.8 % (42.2-75.2); Absolute Lymphocytes 1.1 10^3/uL (1.2-3.4); Absolute Monocytes 0.4 10^3/uL (0.1-0.6); Absolute Neutrophils 2.3 10^3/uL (1.4-6.5); Hematocrit 36.4 % (37.0-47.0); Hemoglobin 12.5 g/dL (12.0-16.0); Mean Corp Hgb Conc. 34.3 g/dL (33.0-37.0); Mean Corpuscular Hgb 31.5 pg (27.0-31.0); Mean Corpuscular Volume 91.7 fL (81.0-99.0); Mean Platelet Volume 9.9 fL (7.4-10.4); Nucleated Red Blood Cells % 0 %; Platelet Count 144 10^3/uL (130-400); Red Blood Cell Count 3.97 10^6/uL (4.20-5.40); Red Cell Dist. Width 13.5 % (11.5-14.5); White Blood Cell Count 3.9 10^3/uL (4.8-10.8)
[2024-09-02 08:21] LABS: NT-proBNP 1890 pg/ml
[2024-09-02] MEDS: TOPROL XL 25 MG PO ×2 (08:27→20:02)
[2024-09-02] MEDS: ELIQUIS 5 MG PO ×2 (08:27→20:02)
[2024-09-02] MEDS: MIRALAX 17 GRAMS PO ×2 (08:27→21:44)
[2024-09-02 08:57] LABS: ALT (SGPT) 20 U/L (0-35); AST (SGOT) 31 U/L (14-36); Albumin 3.2 g/dl (3.5-5.0); Alkaline Phosphatase 52 U/L (38-126); Blood Urea Nitrogen 17 mg/dl (7-17); Calcium 8.2 mg/dl (8.4-10.2); Carbon Dioxide 21 mmol/L (22-30); Chloride 108 mmol/L (98-107); Estimated Creatinine Clearance 47 ml/min; Glucose 87 mg/dl (70-99); Potassium 3.6 mmol/L (3.5-5.1); Sodium 138 mmol/L (135-145); Total Protein 6.1 g/dl (6.3-8.2); eGFR > 60.00
--- NOTE | 2024-09-02 10:11 | VNURNOTE ---
Called AZALIA Davalos back to further discuss [facility] services and to answer any questions. No answer, left message.
[2024-09-02] MEDS: CEFTIN 500 MG PO ×2 (10:56→20:02)
--- NOTE | 2024-09-02 12:16 | W.PN.HOSP.TC ---
Today's Communication/Plan
-
POA will pick and shovel worker patient in AM
PT/OT meanwhile
Assessment / Plan
Assessment / Plan
89yo F with PMHx of hypothyroidism and HLD came with acute onset confusion and episode of vomiting. On admission concered for UTI, however CT abd showed stercoral colitis with significant constipation too. Afib with RVR on admission. Ucx resulted
with cephalosporin- cont cefuroxime. Constipation resolved. PT/OT recommended rehab, but POA would like to take patient home. Cardiology upon d/c. HR well controlled.
A/P:
#Sepsis (Febrile, AMS) 2/2 UTI vs most likely stercoral colitis
#Constipation with stool impaction - resolving
Rectal dilation to 9cm - colorectal Sx: enema
Zosyn
IVF
Ucx E.coli
Bcx - 1 set with coag.neg Staph - most likely contamination - repeated Bcx - neg to date
#Afib with RVR
#Mild pulmonary congestion on XR
improved with Cardizem
Cardiology to follow: Eliquis and Toprol
s/p Lasix - proBNP improved
ProBNP elevated on admission
Echo EF 60%, moderate-severe TR, pulmonary HTN, mild-moderate MR
#Hypothyroidism
#HLD
cont home meds
TSH WNL
DVT ppx on hep
DNR/DNI as discussed with daughter (POA)
I have spent at least 39min reviewing chart, test results, communication with consultants and direct patient care
Anticipated Discharge: Within 24 hours
Subjective/Interval History
-
Date of Service: September 02, 2024
Objective Data
-
Labs:
Laboratory Results
09/02/24
07:43
WBC 3.9 L
Hgb 12.5
Hct 36.4 L
Plt Count 144
Sodium 138
Potassium 3.6
Chloride 108 H
Carbon Dioxide 21 L
BUN 17
Creatinine 0.8
Glucose 87
Calcium 8.2 L
Total Bilirubin 1.0
AST 31
ALT 20
Alkaline Phosphatase 52
Vital Signs:
Vital Signs
Temp Pulse Resp BP Pulse Ox
98.2 F 92 18 134/95 98
09/02/24 07:00 09/02/24 07:00 09/02/24 07:00 09/02/24 08:27 09/02/24 07:00
I&O
09/01/24 09/02/24 09/03/24
06:59 06:59 06:59
Intake Total 1370 / 1370 400 / 400
Output Total 350 / 350 300 / 300
Balance 1020 / 1020 100 / 100
Review of Systems
-
History Source: Patient
All other systems: Reviewed and negative
Physical Exam
-
General: No Apparent Distress
HEENT: Normocephalic
Cardiac: Irregular Rhythm
GI: Soft, Nontender and Nondistended
Musculoskeletal: No Clubbing, No Cyanosis and No Edema
Skin: Warm
Neuro: Awake, Alert, Oriented and AO x 3
Psych: Calm
--- NOTE | 2024-09-02 14:46 | W.PN.CARDCBS ---
Today's Communication / Plan
-
Outpatient cardiac follow-up arranged
Impression / Plan
-
PCP: Dr. Anirudh Altamirano
Cardiology: None
Impression:
Admitted with confusion and vomiting 08/30/2024
Stercoral colitis
Sepsis
Newly diagnosed A-fib with RVR of unknown chronicity
New start to chronic Eliquis OAC 09/01/24
Possible acute HFpEF
Hypothyroidism
Hyperlipidemia
Echo 08/31/2024: EF 60%, no WMA, mild to moderate MR, mild to moderate aortic regurgitation, no , moderate to severe TR with PAP 37 mmHg
Plan:
Atrial fibrillation with rapid ventricular response in the setting of sepsis secondary to UTI versus stercoral colitis
-Remains in atrial fibrillation now with controlled rates
-Continue new Toprol-XL 25 mg twice daily
-Team previously spoke with patient's power of attorney law clerk Susannah on 08/31/2024 regarding atrial fibrillation, management and stroke risk including stroke risk reduction with the addition of oral anticoagulation. Agreeable to anticoagulation. Eliquis 5
mg twice daily initiated 09/01/2024
Heart failure with preserved ejection fraction following IV fluid resuscitation for sepsisAnd rapid atrial fibrillation
-Status post Lasix with improved proBNP
-Will hold further Lasix for now
-Abnormal EKG while in rapid atrial fibrillation with no complaints of chest pain
-Consider outpatient ischemic evaluation
Plan for discharge home today.
Outpatient cardiac follow-up arranged
HPI: Patient came to ER last evening with change in mental status of vomiting and is now elevated with stercoral colitis and cardiology has been consulted for evidence of A-fib on telemetry. Patient is originally from the [facility] and came [place] the
[place] when she was 13 years old, she speaks Irish as well. Patient was not able to participate in our conversation and was noted to be confused by her friend/POA, Susannah, whom she lives with. Patient has no family locally, it is just Susannah. Patient
is normally conversant and able to walk around the home, she can even play pieces on the piano, but they noticed yesterday that she had an episode of vomiting, appeared weak and was not carrying a conversation like she normally would. In ER
there was concern for sepsis and temperature was 101 �F and she was tachycardic. ECG showed A-fib with RVR. I called and talked to Susannah and she says there is no history of A-fib and the patient has not seen a treating machine operator in the past. Patient was
not complaining of any palpitations or chest pain. CT scan of the abdomen and pelvis showed a large stool burden with possible stercoral colitis. In the interim surgery has seen the patient and recommended a bowel regimen. On telemetry patient
has remained in A-fib throughout admission. Prior to admission patient was taking Synthroid and Crestor. Following admission she was started on Toprol-XL 25 mg daily and heart rates are somewhat improved.
Progress Note - Liquid Sugar Melter
Subjective
Date of Service: September 02, 2024
Patient seen and examined. No events overnight. Telemetry/chart reviewed. Review of systems challenging with language barrier however patient offers no complaints
Objective
Labs:
09/02/24 07:43
09/02/24 07:43
Labs
Hgb 12.5 g/dL (12.0-16.0) 09/02/24 07:43
Hct 36.4 % (37.0-47.0) L 09/02/24 07:43
Plt Count 144 10^3/uL (130-400) 09/02/24 07:43
Sodium 138 mmol/L (135-145) 09/02/24 07:43
Potassium 3.6 mmol/L (3.5-5.1) 09/02/24 07:43
BUN 17 mg/dl (7-17) 09/02/24 07:43
Creatinine 0.8 mg/dL (0.6-1.0) 09/02/24 07:43
Glucose 87 mg/dl (70-99) 09/02/24 07:43
Vital Signs and I&O:
Vital Signs
Temp Pulse Resp BP Pulse Ox
99.1 F 91 20 106/77 96
09/02/24 11:00 09/02/24 11:00 09/02/24 11:00 09/02/24 11:00 09/02/24 11:00
Vital Signs
Temp Pulse Resp BP Pulse Ox
99.1 F 91 20 106/77 96
09/02/24 11:00 09/02/24 11:00 09/02/24 11:00 09/02/24 11:00 09/02/24 11:00
Intake & Output
08/31/24 09/01/24 09/02/24 09/03/24
06:59 06:59 06:59 06:59
Intake Total 120 / 120 1370 / 1370 400 / 400
Output Total 300 / 300 350 / 350 300 / 300
Balance -180 / -180 1020 / 1020 100 / 100
Physical Exam
Physical Exam
GEN: Awake and alert. NAD
HEENT: EOMI, MMM
LUNGS: No wheeze
CV: Afib on tele.
ABD: ND
EXT: No edema B/L
--- NOTE | 2024-09-02 15:34 | CM ---
DONNA spoke with José Miguel and he confirmed plan for discharge tomorrow home with him and his . DONNA updated josé miguel that [facility] support is reaching out to them without success. Per José Miguel he is aware of patient needs and they will be with patient 14/04. CM
will continue to follow for discharge planning needs.
Plan; home with VN; [facility]
[2024-09-02] MEDS: MIRALAX PO (17:00)
[2024-09-02] MEDS: CRESTOR 10 MG PO (21:44)
[2024-09-03 03:09] VITALS: BP 128/86
[2024-09-03] MEDS: SYNTHROID 100 MCG PO (05:27)
[2024-09-03 06:00] VITALS: BMI 27.4
[2024-09-03 07:00] VITALS: BP 146/73
[2024-09-03] MEDS: TOPROL XL 25 MG PO (08:25)
[2024-09-03] MEDS: CEFTIN 500 MG PO (08:26)
[2024-09-03] MEDS: ELIQUIS 5 MG PO (08:27)
[2024-09-03] MEDS: MIRALAX 17 GRAMS PO (08:27)
[2024-09-03 11:00] VITALS: BP 131/75
--- NOTE | 2024-09-03 11:01 | W.PN.HOSP.TC ---
Today's Communication/Plan
-
dc
Assessment / Plan
Assessment / Plan
89yo F with PMHx of hypothyroidism and HLD came with acute onset confusion and episode of vomiting. On admission concered for UTI, however CT abd showed stercoral colitis with significant constipation too. Afib with RVR on admission. Ucx resulted
with cephalosporin- cont cefuroxime. Constipation resolved. PT/OT recommended rehab, but POA would like to take patient home. Cardiology upon d/c. HR well controlled. Medically stable for d/c
A/P:
#Sepsis (Febrile, AMS) 2/2 UTI vs most likely stercoral colitis
#Constipation with stool impaction - resolving
Rectal dilation to 9cm - colorectal Sx: enema
Zosyn
IVF
Ucx E.coli
Bcx - 1 set with coag.neg Staph - most likely contamination - repeated Bcx - neg to date
#Afib with RVR
#Mild pulmonary congestion on XR
improved with Cardizem
Cardiology to follow: Eliquis and Toprol
s/p Lasix - proBNP improved
ProBNP elevated on admission
Echo EF 60%, moderate-severe TR, pulmonary HTN, mild-moderate MR
#Hypothyroidism
#HLD
cont home meds
TSH WNL
DVT ppx on hep
DNR/DNI as discussed with daughter (POA)
I have spent at least 39min reviewing chart, test results, communication with consultants and direct patient care
Anticipated Discharge: Today
Subjective/Interval History
-
Date of Service: September 03, 2024
Objective Data
-
Vital Signs:
Vital Signs
Temp Pulse Resp BP Pulse Ox
97.9 F 88 20 146/73 97
09/03/24 07:00 09/03/24 07:00 09/03/24 07:00 09/03/24 07:00 09/03/24 07:00
I&O
09/02/24 09/03/24 09/04/24
06:59 06:59 06:59
Intake Total 400 / 400 720 / 720
Output Total 300 / 300
Balance 100 / 100 720 / 720
Review of Systems
-
History Source: Patient
All other systems: Reviewed and negative
Physical Exam
-
General: No Apparent Distress
HEENT: Normocephalic
Respiratory: Clear to Auscultation
Cardiac: Regular Rhythm
Skin: Warm
Neuro: Awake, Alert, Oriented and AO x 3
Psych: Calm
--- NOTE | 2024-09-03 11:04 | W.DCSUMMARY ---
Discharge Summary
Discharge Data
Date of Admission: 08/31/24
Date of Discharge: 09/03/24
-
Pending Results: No
Hospital Course
89yo F with PMHx of hypothyroidism and HLD came with acute onset confusion and episode of vomiting. On admission concered for UTI, however CT abd showed stercoral colitis with significant constipation too. Afib with RVR on admission. Ucx resulted
with cephalosporin- cont cefuroxime. Constipation resolved. PT/OT recommended rehab, but POA would like to take patient home. Cardiology upon d/c. HR well controlled. Medically stable for d/c
I have spent at least 39min reviewing chart, test results, communication with consultants and direct patient care
Patient was managed for:
#Sepsis (Febrile, AMS) 2/2 UTI vs most likely stercoral colitis
#Constipation with stool impaction - resolving
#Afib with RVR
#Mild pulmonary congestion on XR
#Hypothyroidism
#HLD
Discharge Plan
-
Patient Disposition: Home with Home Care
Discharge Diagnosis/Procedures: Colitis, UTI
Diet: Regular
Driving Restrictions: As prior to admission
Other Services: PT
Referrals:
Anirudh Altamirano MD [Family Provider] -
Rick Lazo MD [Active] - 09/30/24 11:20 am (You have an appt to see Dr. Lazo's nurse practitioner, Elizabeth, at the [place] office on 09/30/24 at 11:20 AM. Please call [phone] if you need to reschedule.)
Prescriptions:
New
Eliquis 5 mg Tablet
5 mg PO BID Qty: 60 11RF
polyethylene glycol 3350 17 gram Powder In Packet
17 g PO TIDPRN PRN (Reason: if no bowel movement in 24h) Qty: 90 0RF
cefuroxime axetil 500 mg Tablet
500 mg PO BID Qty: 10 0RF
metoprolol succinate 25 mg Tablet Extended Release 24 Hr
25 mg PO BID Qty: 60 0RF
Continued
levothyroxine [Synthroid] 100 mcg Tablet
100 mcg PO DAILY
rosuvastatin 10 mg Tablet
10 mg PO DAILY
Rx Instructions:
at night
Discharge Orders:
Discharge Patient (As Directed); Ordered 09/03/24
Ordered By: Chaitanya Carye
Discharge Date and Time
Print Language: COMORAN
--- NOTE | 2024-09-03 11:42 | PN.CDI ---
Addendum entered and electronically signed by Chaitanya Carey MD 09/03/24 12:33:
Just congestion
Original Note:
CDI
- -
CDI:
Physician Documentation Request
Admit Date: 08/31/24 00:54
Dear Doctor Aurelio,
Patient admitted for sepsis.
08/31 CXR: 'Differential considerations of pneumonia and/or atelectasis and/or edema.'
09/02 Cardiology PN: 'Possible acute HFpEF...Heart failure with preserved ejection fraction following IV fluid resuscitation for sepsis And rapid atrial fibrillation -Status post Lasix with improved proBNP -Will hold further Lasix for now'
09/03 Hospitalist PN: 'Mild pulmonary congestion on XR improved with Cardizem...s/p Lasix - proBNP improved, ProBNP elevated on admission, Echo EF 60%, moderate-severe TR, pulmonary HTN, mild-moderate MR'
Laboratory Tests
08/31/24 09/02/24
07:07 07:43
Wer-T-Btjurrbvhgs Pept 2590 1890
Based on the above, could you clarify in the progress notes, the appropriate diagnosis, if significant, that supports the above abnormalities and additional evaluation, monitoring and/or treatment rendered:
Acute HFpEF
Acute pulmonary edema
Other
Use of terms such as suspected, likely, concern for, or probable (associated with a specific diagnosis that is being evaluated, monitored, or treated as if it exists) are acceptable and can be coded in the inpatient setting, when documented at the
time of discharge.
Thank you,
Vicky Luna RN, BSN
CDI Specialist
Available via Daisy text
Please use your independent medical judgment in providing your response.
--- NOTE | 2024-09-03 13:42 | CM ---
Patient is for discharge to home today with family daughter Susannah and son in law, patient will return to home by ambulance. Patient has a 4 pm pick and shovel worker by ambulance. IMM discussed with family by phone and placed on chart. Patient has been set up with
[facility].
Plan; Home by ambulance and [facility].
== END 2024-09-03 17:14 | disposition home health service (06) | DRG 872 ==
LOC: 4 WEST ACU 00:54
PROVIDERS: Physician Assistant Medical; Registered Nurse; ADMITTING PHYSICIAN Internal Medicine; ATTENDING PHYSICIAN Internal Medicine; CONSULT PHYSICIAN Internal Medicine Cardiovascular Disease; EMERGENCY PHYSICIAN Emergency Medicine; FAMILY PHYSICIAN Internal Medicine; OTHER PHYSICIAN Surgery
DX: A41.9 Sepsis, unspecified organism (principal); K56.7 Ileus, unspecified; N30.90 Cystitis, unspecified without hematuria; K56.41 Fecal impaction; E03.9 Hypothyroidism, unspecified; I48.91 Unspecified atrial fibrillation; K52.89 Other specified noninfective gastroenteritis and colitis; Z79.890 Hormone replacement therapy; E78.00 Pure hypercholesterolemia, unspecified; Z79.899 Other long term (current) drug therapy; I08.3 Combined rheumatic disorders of mitral, aortic and tricuspid valves; R09.89 Other specified symptoms and signs involving the circulatory and respiratory systems; I27.20 Pulmonary hypertension, unspecified; Z11.52 Encounter for screening for COVID-19; I25.10 Atherosclerotic heart disease of native coronary artery without angina pectoris; I25.84 Coronary atherosclerosis due to calcified coronary lesion; Z66 Do not resuscitate
CPT/HCPCS: 70450; 71045; 74018; 74176; 80048; 80053; 80061; 81003; 81015; 83605; 83735; 83880; 84443; 85025; 85027; 87040; 87086; 87088; 87150; 87186; 87205; 87502; 87798; 87811; 93005; 93306; 96361; 96374; 97163; 97167; 97530; 99291

== ENCOUNTER 2024-09-09 14:31 | Emergency (ER) | payer MEDICARE, OTHER, SELFPAY ==
[2024-09-09] VITALS (8 sets, daily range): BP systolic 109–154; BP diastolic 56–80; BMI 27.8
[2024-09-09 15:06] LABS: % Basophils 0.7 % (0-2); % Eosinophils 2.2 % (0-6); % Immature Granulocytes 1.1 % (0-0.5); % Lymphocytes 22.5 % (20.5-51.1); % Monocytes 6.6 % (1.7-9.3); % Neutrophils 66.9 % (42.2-75.2); Absolute Basophils 0.1 10^3/uL (0-0.2); Absolute Eosinophils 0.2 10^3/uL (0-0.7); Absolute Immature Granulocytes 0.1 10^3/uL (0-0.05); Absolute Lymphocytes 1.7 10^3/uL (1.2-3.4); Absolute Monocytes 0.5 10^3/uL (0.1-0.6); Absolute Neutrophils 4.9 10^3/uL (1.4-6.5); Hematocrit 40.5 % (37.0-47.0); Hemoglobin 13.5 g/dL (12.0-16.0); Mean Corp Hgb Conc. 33.3 g/dL (33.0-37.0); Mean Corpuscular Hgb 30.7 pg (27.0-31.0); Mean Platelet Volume 9.7 fL (7.4-10.4); Nucleated Red Blood Cells % 0 %; Platelet Count 271 10^3/uL (130-400); Red Cell Dist. Width 13.5 % (11.5-14.5); White Blood Cell Count 7.4 10^3/uL (4.8-10.8)
[2024-09-09 15:14] LABS: INR 1.37; PT 17.4 Sec (11.4-14.6)
[2024-09-09 15:19] LABS: ALT (SGPT) 26 U/L (0-35); AST (SGOT) 31 U/L (14-36); Albumin 3.9 g/dl (3.5-5.0); Alkaline Phosphatase 65 U/L (38-126); Blood Urea Nitrogen 15 mg/dl (7-17); Calcium 9.2 mg/dl (8.4-10.2); Carbon Dioxide 27 mmol/L (22-30); Chloride 101 mmol/L (98-107); Estimated Creatinine Clearance 53 ml/min; Glucose 113 mg/dl (70-99); Potassium 4.8 mmol/L (3.5-5.1); Sodium 137 mmol/L (135-145); Total Bilirubin 0.6 mg/dl (0.2-1.3); Total Protein 7.1 g/dl (6.3-8.2); eGFR > 60.00
--- NOTE | 2024-09-09 16:04 | ED.GENMED ---
History of Present Illness
<Temo Benitez PA-C - Last Filed: 09/09/24 19:31>
General
Chief Complaint: Urinary Symptoms
Source: patient
Exam Limitations: none
Time Seen by Provider: 09/09/24 15:54
History of Present Illness
History of Present Illness:
89-year-old female presents in referral from family doctor's office. She was discharged from this hospital less than a week ago. She had a UTI and sterile coral colitis. She was taking antibiotics and apparently missed a days worth her
antibiotics. And routine follow-up with family doctor family doctor noticed her to be confused and she sent her in for confusion. Patient self denies any pain. She is not sure why she is in the hospital. She denies headache chest pain abdominal
shortness of breath. Currently no one is in the room at time my exam. I did attempt to call both contacts on the chart however there was no answer
Phy Exam
<Temo Benitez PA-C - Last Filed: 09/09/24 19:31>
Physical Exam
Physical Exam:
General: Well-appearing female no acute respiratory distress
HEENT: Normocephalic atraumatic neck is supple mucosa moist
Heart: Regular rate and rhythm
Lungs: Clear no wheeze
Abdomen is soft nontender
Extremities: No cyanosis
Neurologic: Alert and oriented to person and place but not to time no facial asymmetry no drift on exam no unilateral numbness or weakness confused at the date she cannot tell me what day or month it is
Sepsis
<Temo Benitez PA-C - Last Filed: 09/09/24 19:31>
Sepsis Screening
Sepsis Assessment: Sepsis Ruled Out
Sepsis Screen
Sepsis Screen: Sepsis Ruled Out
Date: 09/09/24
Time: 19:31
<Clarence Mata DO - Last Filed: 09/09/24 19:33>
Sepsis Screen
Sepsis Screen: Sepsis Ruled Out
Date: 09/09/24
Time: 19:32
Course
<Temo Benitez PA-C - Last Filed: 09/09/24 19:31>
Orders/Labs/Results
Orders:
Orders
09/09/24 14:50
Electrocardiogram (*1) Urgent
Reason for Study: Other
Other Reason for Exam: Possible Sepsis
EKG- Treatment ONCE
09/09/24 14:52
Complete Blood Count/With Diff Urgent
Comprehensive Metabolic Panel Urgent
Prothrombin Time Urgent
09/09/24 16:03
Urinalysis Reflex To Culture Urgent
Date Specimen was Collected: 09/09/24
Time Specimen was Collected: 16:03
09/09/24 16:08
CT Head W/o Iv Contrast Urgent
Comment:
Reason For Exam: change of mental status
Abnormal Lab Results
09/09/24 09/09/24
14:52 16:03
Abs Immat Gran (auto) 0.1 H 10^3/uL
(0-0.05)
Immature Gran % 1.1 H %
(0-0.5)
PT 17.4 H Sec
(11.4-14.6)
Glucose 113 H mg/dl
(70-99)
Urine Ketones Trace A
(Negative)
09/09/24 14:52
09/09/24 14:52
Vital Signs
Initial and Last Documented VS:
Initial Vital Signs
Temp Pulse Resp Pulse Ox
98.4 F 85 26 97
09/09/24 14:33 09/09/24 14:33 09/09/24 14:33 09/09/24 14:33
Last Documented Vital Signs
Temp Pulse Resp BP Pulse Ox
98.4 F 72 16 122/66 97
09/09/24 14:33 09/09/24 16:45 09/09/24 18:00 09/09/24 16:31 09/09/24 16:00
Bernardlt;Clarence Mata DO - Last Filed: 09/09/24 19:33>
Orders/Labs/Results
Orders:
Orders
09/09/24 14:50
Electrocardiogram (*1) Urgent
Reason for Study: Other
Other Reason for Exam: Possible Sepsis
EKG- Treatment ONCE
09/09/24 14:52
Complete Blood Count/With Diff Urgent
Comprehensive Metabolic Panel Urgent
Prothrombin Time Urgent
09/09/24 16:03
Urinalysis Reflex To Culture Urgent
Date Specimen was Collected: 09/09/24
Time Specimen was Collected: 16:03
09/09/24 16:08
CT Head W/o Iv Contrast Urgent
Comment:
Reason For Exam: change of mental status
Abnormal Lab Results
09/09/24 09/09/24
14:52 16:03
Abs Immat Gran (auto) 0.1 H 10^3/uL
(0-0.05)
Immature Gran % 1.1 H %
(0-0.5)
PT 17.4 H Sec
(11.4-14.6)
Glucose 113 H mg/dl
(70-99)
Urine Ketones Trace A
(Negative)
09/09/24 14:52
09/09/24 14:52
Vital Signs
Initial and Last Documented VS:
Initial Vital Signs
Temp Pulse Resp Pulse Ox
98.4 F 85 26 97
09/09/24 14:33 09/09/24 14:33 09/09/24 14:33 09/09/24 14:33
Last Documented Vital Signs
Temp Pulse Resp BP Pulse Ox
98.4 F 72 16 122/66 97
09/09/24 14:33 09/09/24 16:45 09/09/24 18:00 09/09/24 16:31 09/09/24 16:00
<Temo Benitez PA-C - Last Filed: 09/09/24 19:31>
MDM/Problems Addressed
Differential Diagnosis Includes:
Sending from family doctor for change in mental status. Currently unaccompanied by family. I do not know the patient's baseline but is no focal deficit. She is confused on the date. No unilateral findings to suggest CVA. Will check labs and
urinalysis.
<Temo Benitez PA-C - Last Filed: 09/09/24 19:31>
*Critical Care Note
Total Time (30-74mins, 75-104mins- exclusive of procedures): Not Applicable
<Temo Benitez PA-C - Last Filed: 09/09/24 19:31>
Update Note
Update Note:
Patient reevaluated vital signs still stable she is alert she responds to questions. I did get a hold of the patient's scrummaster and Susannah VIEYRA. We was happy to accept her back home. Urinalysis is negative for infection. No indication for
admission to hospital
ED Attending Note
<Temo Benitez PA-C - Last Filed: 09/09/24 19:31>
-
Portions of this chart may have been created with voice recognition software.� Occasional wrong word or��sound alike� substitutions may have occurred due to the inherent limitations of voice recognition software.
Discharge Plan
Departure
Patient Disposition: Home (Routine Discharge)
Date of Disposition: 09/09/24
Time of Disposition: 19:30
Patient with high blood pressure during this ER visit?: No
Discharge Problem:
Fatigue
Instructions: Fatigue ED
Prescriptions:
No Action
levothyroxine [Synthroid] 100 mcg Tablet
100 mcg PO DAILY
rosuvastatin 10 mg Tablet
10 mg PO DAILY
Rx Instructions:
at night
Eliquis 5 mg Tablet
5 mg PO BID Qty: 60 11RF
polyethylene glycol 3350 17 gram Powder In Packet
17 g PO TIDPRN PRN (Reason: if no bowel movement in 24h) Qty: 90 0RF
cefuroxime axetil 500 mg Tablet
500 mg PO BID Qty: 10 0RF
metoprolol succinate 25 mg Tablet Extended Release 24 Hr
25 mg PO BID Qty: 60 0RF
Referrals:
Anirudh Altamirano MD [Family Provider] -
Activity Restrictions/Additional Instructions:
As discussed, there is no concerning finding on today's workup. Please return for worsening symptoms otherwise
Interventions
Interventions:
*Risk Screen - Suicide Last Done: 09/09/24 14:33
*General Assessment Last Done: 09/09/24 14:33
*Neglect/Abuse Screening Last Done: 09/09/24 14:33
ED- Fall Risk Assessment Last Done: 09/09/24 14:33
ED-Female Genitourinary Assessment Last Done: 09/09/24 14:33
Discharge Date and Time
Print Language: TRINIDADIAN
[2024-09-09 16:23] LABS: Urine Albumin Negative (Neg - Trace); Urine Bilirubin Negative (Negative); Urine Character Slightly Cloudy (Clear); Urine Color Yellow; Urine Glucose Negative (Negative); Urine Ketone Trace (Negative); Urine Leukocyte Negative (Negative); Urine Nitrite Negative (Negative); Urine Occult Blood Negative (Negative); Urine Specific Gravity 1.025 (<1.030); Urine Urobilinogen Negative (Neg - 1+)
== END 2024-09-09 22:15 | disposition home or self-care (01) ==
LOC: EMR 14:31
PROVIDERS: Emergency Medicine; Physician Assistant; EMERGENCY PHYSICIAN Emergency Medicine; FAMILY PHYSICIAN Internal Medicine
DX: R53.83 Other fatigue (principal); R41.82 Altered mental status, unspecified; Z87.440 Personal history of urinary (tract) infections; Z79.01 Long term (current) use of anticoagulants
CPT/HCPCS: 99285; 70450; 80053; 81003; 85025; 85610; 93005

== ENCOUNTER → 2025-02-21 19:27 | Emergency (ER) | payer MEDICARE, OTHER, SELFPAY ==
[2025-02-21 19:29] VITALS: BP 125/81
[2025-02-21 20:00] VITALS: BP 124/71
[2025-02-21 20:11] LABS: % Basophils 0.7 % (0-2); % Eosinophils 1.9 % (0-6); % Immature Granulocytes 0.3 % (0-0.5); % Lymphocytes 25.8 % (20.5-51.1); % Monocytes 5.3 % (1.7-9.3); Absolute Eosinophils 0.1 10^3/uL (0-0.7); Absolute Lymphocytes 1.5 10^3/uL (1.2-3.4); Absolute Monocytes 0.3 10^3/uL (0.1-0.6); Absolute Neutrophils 3.8 10^3/uL (1.4-6.5); Hematocrit 41.1 % (37.0-47.0); Hemoglobin 14.3 g/dL (12.0-16.0); Mean Corp Hgb Conc. 34.8 g/dL (33.0-37.0); Mean Corpuscular Hgb 31.2 pg (27.0-31.0); Mean Corpuscular Volume 89.5 fL (81.0-99.0); Mean Platelet Volume 9.9 fL (7.4-10.4); Nucleated Red Blood Cells % 0 %; Platelet Count 196 10^3/uL (130-400); Red Blood Cell Count 4.59 10^6/uL (4.20-5.40); White Blood Cell Count 5.8 10^3/uL (4.8-10.8)
[2025-02-21 20:21] LABS: Urine Albumin Negative (Neg - Trace); Urine Bilirubin Negative (Negative); Urine Character Slightly Cloudy (Clear); Urine Color Yellow; Urine Glucose Negative (Negative); Urine Ketone Negative (Negative); Urine Leukocyte 2+ (Negative); Urine Nitrite Positive (Negative); Urine Occult Blood 3+ (Negative); Urine Urobilinogen Negative (Neg - 1+)
[2025-02-21 20:23] LABS: Lactic Acid 1.7 mmol/L (0.7-2.0)
[2025-02-21 20:24] LABS: ALT (SGPT) 28 U/L (0-35); AST (SGOT) 27 U/L (14-36); Albumin 4.3 g/dl (3.5-5.0); Alkaline Phosphatase 61 U/L (38-126); Blood Urea Nitrogen 24 mg/dl (7-17); Calcium 9.1 mg/dl (8.4-10.2); Carbon Dioxide 22 mmol/L (22-30); Chloride 110 mmol/L (98-107); Estimated Creatinine Clearance 53 ml/min; Glucose 135 mg/dl (70-99); Potassium 4.1 mmol/L (3.5-5.1); Sodium 141 mmol/L (135-145); Total Protein 7.6 g/dl (6.3-8.2); eGFR > 60.00
[2025-02-21 20:34] LABS: Urine Squamous Cell 21-25 /LPF (Few)
[2025-02-21 20:35] LABS: Urine Bacteria Many (Negative); Urine Red Blood Cell 0-2 /HPF (0-2); Urine White Cell 21-25 /HPF (0-5)
[2025-02-21 21:00] VITALS: BP 129/64
[2025-02-21 22:00] VITALS: BP 121/68
[2025-02-21 23:00] VITALS: BP 135/84
--- NOTE | 2025-02-21 23:01 | ED.GENMED ---
History of Present Illness
General
Chief Complaint: Weakness
Source: patient
Exam Limitations: other (Poor historian)
Time Seen by Provider: 02/21/25 22:41
Nursing documentation reviewed up to this point in time: agreed with
History of Present Illness
History of Present Illness:
89-year-old female presents with weakness onset about 3 days ago family's concerns could have a UTI not ambulating as much as she usually does, denies fever she is afebrile here urinalysis here as noted although it was not a straight cath it was a
dirty specimen will be repeated she has no cough no abdominal pain states she lives with friends I did call her power of workers compensation defense attorney at [phone] to get some more information waiting to get a call back
Patient denies dysuria frequency no hematuria no headache
Past History
Past History
ED Past Medical History: Arrthythmia, HTN and Hypercholesterolemia
Social History
Tobacco: Non-smoker
Alcohol: None
Drug: None
Personal:
Living: with roommate (Unclear)
Employment: Not employed
Review of Systems
Review of Systems
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
Constitutional: Reports fatigue; Denies fever or chills
Phy Exam
Physical Exam
Physical Exam:
Physical Exam
General: no apparent distress, not acutely ill
Neck: No jaundice
Heart: s1/s2 regular rate and rhythm, no murmur. equal radial pulses.
Lungs: no acute respiratory distress. clear bilaterally
Abdomen: Soft nontender
Neuro: alert and oriented globally weak
Skin: no rash
Psychiatric: well kept. interactive and cooperative
Extremities: Trace edema
Sepsis
Sepsis Screening
Sepsis Assessment: Sepsis Ruled Out
Sepsis Screen
Sepsis Screen: Sepsis Ruled Out
Date: 02/22/25
Time: 05:46
Course
Orders/Labs/Results
Orders:
Orders
02/21/25 19:58
Complete Blood Count/With Diff Urgent
Comprehensive Metabolic Panel Urgent
Lactic Acid Urgent
Urine Microscopic Reflex Cult Urgent
Urine Reflex Culture from UA [Urinalysis Reflex To Culture] Urgent
Date Specimen was Collected: 02/21/25
Time Specimen was Collected: 19:44
Urine Culture Urgent
NIKKI Source: U
Specimen Description:
Date Specimen was Collected: 02/21/25
Time Specimen was Collected: 19:44
02/21/25 22:58
Straight cath- Treatment ONCE
CR Chest - 2 Views Urgent
Comment:
Reason For Exam: weakness
02/21/25 22:59
Electrocardiogram (*1) Urgent
Reason for Study: Atrial Fibrillation
EKG- Treatment ONCE
02/21/25 23:03
CT Head W/o Iv Contrast Urgent
Comment:
Reason For Exam: Weakness trouble ambulating
02/21/25 23:58
Urinalysis Reflex To Culture Urgent
Date Specimen was Collected: 02/21/25
Time Specimen was Collected: 23:57
Urine Microscopic Reflex Cult Urgent
Urine Culture Urgent
NIKKI Source: U
Specimen Description:
Date Specimen was Collected: 02/21/25
Time Specimen was Collected: 23:57
02/22/25 00:19
CefTRIAXone [Rocephin] 1,000 mg IV NOW STA
02/22/25 03:39
Case Management Consult ONCE
Case Management Consult: Discharge Planning
Request for Physical Therapy [NOTICE] Routine
Abnormal Lab Results
02/21/25 02/21/25
19:58 23:58
MCH 31.2 H pg
(27.0-31.0)
Chloride 110 H mmol/L
(98-107)
BUN 24 H mg/dl
(7-17)
Glucose 135 H mg/dl
(70-99)
Ur Occult Blood Reflex 3+ A 4+ A
(Negative) (Negative)
Urine Nitrite (Reflex) Positive A
(Negative)
Leukocyte Esterase Rfl 2+ A 3+ A
(Negative) (Negative)
Urine RBC 26-30 A /HPF
(0-2)
Urine WBC (Reflex) 21-25 A /HPF
(0-5)
Urine Bacteria (Reflex) Many A Few A
(Negative) (Negative)
Urine Albumin (Reflex) 1+ A
(Neg - Trace)
02/21/25 19:58
02/21/25 19:58
Vital Signs
Initial and Last Documented VS:
Initial Vital Signs
Temp Pulse Resp BP Pulse Ox
98.7 F 66 18 125/81 97
02/21/25 19:29 02/21/25 19:29 02/21/25 19:29 02/21/25 19:29 02/21/25 19:29
Last Documented Vital Signs
Temp Pulse Resp BP Pulse Ox
98.7 F 85 18 152/77 97
02/21/25 19:29 02/22/25 05:05 02/22/25 05:05 02/22/25 05:05 02/22/25 02:40
MDM/Problems Addressed
Differential Diagnosis Includes:
Deconditioning UTI electrolyte abnormality stroke pneumonia
MDM/Problems Addressed:
Weakness
Chronic conditions affecting care: HTN and Arrhythmia
Acute Exacerbation and/or Progression of Chronic Illness: HTN and Arrhythmia
*Radiology
Radiology exam reviewed: preliminary read by ED provider
*Pulse Oximetry
Patient hypoxic: no
*EKG
Interpreted by ED Provider?: Yes
Interpretation: abnormal
Comparison EKG: no comparison EKG present
Heart Rate: 78
Rate: normal
Rhythm: a-fib
Ischemia: non-specific ST changes
*Oncology Account Specialist Interpretation
Rate: normal
Interpretation: normal
Heart Rate: 78
Rhythm: sinus
*Critical Care Note
Total Time (30-74mins, 75-104mins- exclusive of procedures): Not Applicable
Update Note
Update Note:
11 PM, update called to power of workers compensation defense attorney Susannah to gather more history she is elderly unclear living situation the meantime we will get a straight cath UA
12:20 AM no response her power of workers compensation defense attorney CT of the head noted chest x-ray noted repeat urinalysis noted was started on antibiotics had E. coli in her urine previously
3:30 AM patient remains hemodynamically stable, will keep her in the ER to the morning have case management PT is here she looks well all things considered
5:45 AM second call placed to power of workers compensation defense attorney Susannah asked her to come to the ER or to call
ED Attending Note
-
Portions of this chart may have been created with voice recognition software.� Occasional wrong word or��sound alike� substitutions may have occurred due to the inherent limitations of voice recognition software.
Discharge Plan
Departure
Patient Disposition: Other
Date of Disposition: 02/22/25
Time of Disposition: 05:40
Condition: Good
Covid-19: Not Applicable
Discharge Problem:
Acute UTI
Instructions: Urinary tract infections in adults, Generalized Weakness (DC)
Prescriptions:
New
cefuroxime axetil 500 mg tablet
500 mg PO BID Qty: 10 0RF
No Action
levothyroxine [Synthroid] 100 mcg Tablet
100 mcg PO DAILY
rosuvastatin 10 mg Tablet
10 mg PO DAILY
Rx Instructions:
at night
Eliquis 5 mg Tablet
5 mg PO BID Qty: 60 11RF
polyethylene glycol 3350 17 gram Powder In Packet
17 g PO TIDPRN PRN (Reason: if no bowel movement in 24h) Qty: 90 0RF
cefuroxime axetil 500 mg Tablet
500 mg PO BID Qty: 10 0RF
metoprolol succinate 25 mg Tablet Extended Release 24 Hr
25 mg PO BID Qty: 60 0RF
Referrals:
Anirudh Altamirano MD [Family Provider, Internal Medicine] - Tomorrow
Interventions
Interventions:
*Risk Screen - Suicide Last Done: 02/21/25 19:29
*General Assessment Last Done: 02/21/25 19:29
*Neglect/Abuse Screening Last Done: 02/21/25 19:29
*ED- Fall Risk Assessment Last Done: 02/21/25 19:29
*ED COVID-19 Vaccine History Last Done: 02/21/25 19:29
ED- Cardiac Assessment Last Done: 02/21/25 22:55
ED- Neurological Assessment Last Done: 02/21/25 22:55
ED- Pulmonary Assessment Last Done: 02/21/25 22:55
Discharge Date and Time
Print Language: MACEDONIAN
[2025-02-22 00:07] LABS: Urine Albumin 1+ (Neg - Trace); Urine Bilirubin Negative (Negative); Urine Character Clear (Clear); Urine Color Yellow; Urine Glucose Negative (Negative); Urine Ketone Negative (Negative); Urine Leukocyte 3+ (Negative); Urine Nitrite Negative (Negative); Urine Occult Blood 4+ (Negative); Urine Urobilinogen 1+ (Neg - 1+)
[2025-02-22 00:12] LABS: Urine Bacteria Few (Negative); Urine Red Blood Cell 26-30 /HPF (0-2)
[2025-02-22] MEDS: ROCEPHIN 1000 MG IV (01:09)
[2025-02-22 02:00] VITALS: BP 127/75
[2025-02-22 05:05] VITALS: BP 152/77
--- NOTE | 2025-02-22 09:00 | CM ---
Addendum entered by Giulia Urrutia 02/22/25 11:38:
VN rec by therapy, discussion with AZALIA, referral sent to [facility] per her request. S transport arranged. Transportation resource list provided per AZALIA request. No further discharge needs at this time.
Addendum entered by Giulia Urrutia 02/22/25 09:13:
I was able to reach José Miguel who gave the phone to Susannah. Per Susannah, Radha has been very weak, unable to stand without falling backwards and not walking. Radha sleeps most of the day, is eating and drinking, has not moved her bowels in several days
which Susannah thins is contributing to her weakness. They do not want SNF placement, want her to come home and have PT at home, I informed her PT will see her here and ED MD will reach out after eval. She confirmed the best number to reach her is
[phone].
PCP: Anirudh Altamirano
Pharmacy: [facility] in [place].
Original Note:
Called and left voicemail for pt's AZALIA Davalos requesting a call back to discuss discharge planning.
[2025-02-22 09:39] VITALS: PULSE 77
[2025-02-22 10:45] VITALS: BP 122/47
== END | disposition home or self-care (01) ==
LOC: EMR 19:27
PROVIDERS: Emergency Medicine; EMERGENCY PHYSICIAN Emergency Medicine; FAMILY PHYSICIAN Internal Medicine
DX: N39.0 Urinary tract infection, site not specified (principal); R53.1 Weakness; R53.83 Other fatigue; E78.00 Pure hypercholesterolemia, unspecified; I10 Essential (primary) hypertension; I48.91 Unspecified atrial fibrillation; Z87.440 Personal history of urinary (tract) infections
CPT/HCPCS: 99285; 96374; 51701; 70450; 71046; 80053; 81003; 81015; 83605; 85025; 87077; 87086; 93005